=== PATIENT | male | born 1955 | race Caucasian/White ===

== ENCOUNTER 2017-01-29 14:29 | Emergency (ER) | payer MEDICARE, OTHER ==
[~2017-01-29] VITALS: Ht 180.3 cm; Wt 58.5 kg
[2017-01-29] MEDS ORDERED: ALBUTROL (14:50)
--- NOTE | 2017-01-29 15:12 | Diagnostic Imaging Report ---
INDICATION: Shortness of breath. History of COPD. COMPARISON: 11/28/2016. FINDINGS: There is obstructive pulmonary disease with flattening of the diaphragms. There is significant increase in air trapping bilaterally when compared with the previous exam. There are no acute infiltrates. No masses have developed. The heart is not enlarged. No evidence of pulmonary edema. No hilar adenopathy. IMPRESSION: 1. Findings consistent with severe COPD. Air trapping has increased significantly since the previous exam. 2. No acute infiltrates or masses have occurred. Dictated by: Dictated on workstation # [id number]
--- NOTE | 2017-01-29 15:24 | ED Respiratory ---
General Chief Complaint: Respiratory Problems Stated Complaint: SOA Nursing Triage Note: TO ED PER [facility] WITH SOA DUONEB AND ALBUTROL GIVEN BY EMS. PATIENT REPORTS IT IS GETTING WORSE LAST FEW DAYS. Source: patient, EMS History of Present Illness Time seen by provider: 14:34 Initial Comments PT ARRIVES VIA [facility] FROM HOME C/O SHORTNESS OF BREATH--HAS COPD AND IS A CHRONIC PROBLEM, WORSE FOR 2 DAYS EMS GAVE DUO NEB TREATMENT EN ROUTE, AND IS RECEIVING ALBUTEROL NEB TREATMENT ON ARRIVAL NO FEVER NO SIGNIFICANT COUGH HAS NOT BEEN USING HIS NEBULIZER PRESCRIBED. PT WEARS HOME O2 AT 5L/NC ( INCREASED DOSE HIMSELF ) PT CLAIMS HE QUIT SMOKING AND NO ONE IN HOME SMOKES ( BUT PT REEKS OF CIGARETTES ) PT HAS HISTORY OF SAME MULTIPLE TIMES PCP: [facility] Allergies and Home Medications Allergies Coded Allergies: No Known Drug Allergies (Unverified , 01/29/17) Home Medications (Reported) Budesonide 1 Mg/2 Ml Ampul.neb #1 1 MG IH BID Prescribed by: CHAVEZ ERICKSON on 01/29/17 1614 Doxycycline Monohydrate 100 Mg Capsule #20 100 MG PO BID Prescribed by: CHAVEZ ERICKSON on 01/29/17 1614 Methylprednisolone 4 Mg Tab.ds.pk #1 4 MG PO UD Prescribed by: CHAVEZ ERICKSON on 01/29/17 1614 Constitutional: no symptoms reported EENTM: no symptoms reported Respiratory: see HPI Cardiovascular: no symptoms reported Gastrointestinal: no symptoms reported Genitourinary: no symptoms reported Musculoskeletal: no symptoms reported Skin: no symptoms reported Psychiatric/Neurological: No Symptoms Reported Hematologic/Lymphatic: No Symptoms Reported Immunological/Allergic: no symptoms reported Past Stvbpcf-Lmadsc-Effsyg Hx Patient Social History Alcohol Use: Past History (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, DENIES RECENT USE) Recreational Drug Use: No Smoking Status: Former Smoker (2 11/13 PPD, QUIT 11/2016) Type Used: Cigarettes Recent Foreign Travel: No Contact w/Someone Who Travel: No Recent Infectious Disease Expo: No Recent Hopitalizations: No Surgeries HX Surgeries: Yes (RIGHT ARM--TRAUMATIC ABOVE ELBOW AMPUTATION 2006) Surgeries: Amputation, Orthopedic, Tonsillectomy Respiratory Hx Respiratory Disorders: Yes Respiratory Disorders: Pneumonia, COPD, Emphysema Cardiovascular Hx Cardiac Disorders: Yes Cardiac Disorders: Hypertension Neurological Hx Neurological Disorders: Yes Neurological Disorders: Neuropathy Genitourinary Hx Genitourinary Disorders: No Gastrointestinal Hx Gastrointestinal Disorders: No Musculoskeletal Hx Musculoskeletal Disorders: Yes (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 ABLE TO TALK IN FULL SENTENCES. ) thin HEENT: PERRL/EOMI (GLASSES) Neck: normal inspection Respiratory: no respiratory distress no accessory muscle use wheezing (FAINT [employer] INSPIRATORY WHEEZING ON LEFT, END EXPIRATORY WHEEZING ON RIGHT. 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 no motor/sensory deficits alert normal mood/affect oriented x 3 Skin: normal color warm/dry Focused Exam Lactic Acid Level Laboratory Tests Test 01/29/17 14:43 Alanine Aminotransferase (ALT/SGPT) 14U/L (0-55) Albumin 4.2G/DL (3.2-4.5) Alkaline Phosphatase 59U/L (40-136) Anion Gap 10MMOL/L (5-14) Aspartate Amino Transf (AST/SGOT) 15U/L (5-34) B-Type Natriuretic Peptide < 10.0PG/ML (<100.0) BUN/Creatinine Ratio 24 Blood Urea Nitrogen 21MG/DL (7-18) H Calcium Level 9.7MG/DL (8.5-10.1) Carbon Dioxide Level 32MMOL/L (21-32) Chloride Level 102MMOL/L (98-107) Creatinine 0.87MG/DL (0.60-1.30) Estimat Glomerular Filtration Rate > 60 Glucose Level 92MG/DL (70-105) Potassium Level 4.8MMOL/L (3.6-5.0) Sodium Level 144MMOL/L (135-145) Total Bilirubin 0.8MG/DL (0.1-1.0) Total Protein 6.9G/DL (6.4-8.2) Troponin I < 0.30NG/ML (<0.30) Progress/Results/Core Measures Results/Orders Lab Results Laboratory Tests Test 01/29/17 14:43 Range/Units Alanine Aminotransferase (ALT/SGPT) 14 0-55 U/L Albumin 4.2 3.2-4.5 G/DL Alkaline Phosphatase 59 40-136 U/L Anion Gap 10 5-14 MMOL/L Aspartate Amino Transf (AST/SGOT) 15 5-34 U/L B-Type Natriuretic Peptide < 10.0 <100.0 PG/ML BUN/Creatinine Ratio 24 Band Neutrophils 0 % Basophils # (Auto) 0.1 0.0-0.1 10^3/uL Basophils % (Manual) 1 % Basophils (%) (Auto) 2 0-10 % Blood Morphology Comment NORMAL Blood Urea Nitrogen 21 H 7-18 MG/DL Calcium Level 9.7 8.5-10.1 MG/DL Carbon Dioxide Level 32 21-32 MMOL/L Chloride Level 102 98-107 MMOL/L Creatinine 0.87 0.60-1.30 MG/DL Eosinophils # (Auto) 0.8 H 0.0-0.3 10^3/uL Eosinophils % (Manual) 13 % Eosinophils (%) (Auto) 12 H 0-10 % Estimat Glomerular Filtration Rate > 60 Glucose Level 92 70-105 MG/DL Hematocrit 45 40-54 % Hemoglobin 15.3 13.3-17.7 G/DL Lymphocytes # (Auto) 1.8 1.0-4.0 X 10^3 Lymphocytes % (Manual) 45 % Lymphocytes (%) (Auto) 29 12-44 % Mean Corpuscular Hemoglobin 29 25-34 PG Mean Corpuscular Hemoglobin Concent 34 32-36 G/DL Mean Corpuscular Volume 85 80-99 FL Mean Platelet Volume 11.0 H 7.4-10.4 FL Monocytes # (Auto) 0.5 0.0-1.0 X 10^3 Monocytes % (Manual) 2 % Monocytes (%) (Auto) 9 0-12 % Neutrophils # (Auto) 3.1 1.8-7.8 X 10^3 Neutrophils % (Manual) 39 % Neutrophils (%) (Auto) 49 42-75 % Platelet Count 218 130-400 10^3/uL Potassium Level 4.8 3.6-5.0 MMOL/L Red Blood Count 5.33 4.35-5.85 10^6/uL Red Cell Distribution Width 12.6 10.0-14.5 % Sodium Level 144 135-145 MMOL/L Total Bilirubin 0.8 0.1-1.0 MG/DL Total Protein 6.9 6.4-8.2 G/DL Troponin I < 0.30 <0.30 NG/ML White Blood Count 6.3 4.3-11.0 10^3/uL My Orders Orders-CHAVEZ ERICKSON DO Saline Lock/Iv-Start (01/29/17 14:39) Monitor-Rhythm Ecg Trace Only (01/29/17 14:39) BNP (01/29/17 14:39) Cbc With Automated Diff (01/29/17 14:39) Comprehensive Metabolic Panel (01/29/17 14:39) Troponin I (01/29/17 14:39) Chest Pa/Lat (2 View) (01/29/17 14:39) Ekg Tracing (01/29/17 14:39) Manual Differential (01/29/17 14:43) Ceftriaxone Injection (Rocephin Injectio (01/29/17 16:15) Medications Given in ED Current Medications Medications Dose Ordered Sig/Jeremiah Route Start Time Stop Time Status Last Admin Dose Admin Ceftriaxone Sodium/Sodium Chloride 50 ml @ 100 mls/hr ONCE ONCE IV 01/29/17 16:15 01/29/17 16:44 DC 01/29/17 16:20 100 MLS/HR Vital Signs/I&O Vital Sign - Last 12Hours 01/29/17 01/29/17 14:32 16:48 Temp 97.8 Pulse 74 86 Resp 18 18 B/P 131/90 Pulse Ox 98 96 O2 Delivery Nasal Cannula O2 Flow Rate 2 Blood Pressure Mean: 104 Progress Note : Progress Note LUNGS CLEAR AFTER NEBULIZER TREATMENT--PT STATES HE FEELS MUCH BETTER O2 SATS REMAINED 98% ON 2L/NC THROUGHOUT ER STAY PT FEELS COMFORTABLE GOING HOME. ECG Initial ECG Impression Time: 14:43 Initial ECG Rate: 71 Initial ECG Rhythm: Normal Sinus Initial ECG Impression: Normal Initial ECG Comparisson: No Previous ECG Available Diagnostic Imaging Comments CXR--NO ACUTE PROCESS, SEVERE COPD--PER RADIOLOGIST REPORT @ 1524 Reviewed: Reviewed by Me Departure Impression Impression: Primary Impression: COPD exacerbation Disposition: 01 HOME, SELF-CARE Condition: Improved Departure-Patient Inst. Referrals: NO,LOCAL PHYSICIAN (PCP/Family) Primary Care Physician Patient Instructions: Exacerbation of COPD (DC) Add. Discharge Instructions: USE YOUR ALBUTEROL/ ATROVENT NEBULIZER TREATMENTS EVERY 4-6 HOURS USE YOUR HOME OXYGEN AT 2 LITERS--DO NOT INCREASE IT ABOVE 5 LITERS FOLLOW UP WITH YOUR DR THIS WEEK FOR FURTHER CARE All discharge instructions reviewed with patient and/or family. Voiced understanding. Scripts Budesonide (Pulmicort)1 Mg/2 Ml Ampul.neb1 Mg IH BID #1 UNIT Prov:CHAVEZ ERICKSON DO 01/29/17 Methylprednisolone (Medrol)4 Mg Tab.ds.pk4 Mg PO UD #1 PKG Prov:CHAVEZ ERICKSON DO 01/29/17 Doxycycline Monohydrate 100 Mg [id number] Mg PO BID #20 CAP Prov:CHAVEZ ERICKSON DO 01/29/17 CHAVEZ ERICKSON DO Jan 29, 2017 15:24
[2017-01-29 15:25] LABS: BASOPHILS # (AUTO) 0.1 10^3/uL (0.0-0.1); BASOPHILS % (AUTO) 2 % (0-10); EOSINOPHILS # (AUTO) 0.8 10^3/uL (0.0-0.3); EOSINOPHILS % (AUTO) 12 % (0-10); LYMPHOCYTES # (AUTO) 1.8 X 10^3 (1.0-4.0); LYMPHOCYTES % (AUTO) 29 % (12-44); MEAN CORPUSCULAR HEMOGLOBIN 29 PG (25-34); MEAN CORPUSCULAR HGB CONC 34 G/DL (32-36); MEAN CORPUSCULAR VOLUME 85 FL (80-99); MONOCYTES # (AUTO) 0.5 X 10^3 (0.0-1.0); MONOCYTES % (AUTO) 9 % (0-12); NEUTROPHILS # (AUTO) 3.1 X 10^3 (1.8-7.8); NEUTROPHILS % (AUTO) 49 % (42-75); PLATELET COUNT 218 10^3/uL (130-400); RED BLOOD COUNT 5.33 10^6/uL (4.35-5.85); RED CELL DISTRIBUTION WIDTH 12.6 % (10.0-14.5); WHITE BLOOD COUNT 6.3 10^3/uL (4.3-11.0)
[2017-01-29 15:44] LABS: ALANINE AMINOTRANSFERASE 14 U/L (0-55); ALBUMIN 4.2 G/DL (3.2-4.5); ANION GAP 10 MMOL/L (5-14); ASPARTATE AMINO TRANSFERASE 15 U/L (5-34); BILIRUBIN,TOTAL 0.8 MG/DL (0.1-1.0); BLOOD UREA NITROGEN 21 MG/DL (7-18); BUN/CREATININE RATIO 24; CALCIUM 9.7 MG/DL (8.5-10.1); CARBON DIOXIDE 32 MMOL/L (21-32); CHLORIDE 102 MMOL/L (98-107); CREATININE SERUM 0.87 MG/DL (0.60-1.30); GFR ESTIMATED > 60; GLUCOSE 92 MG/DL (70-105); POTASSIUM 4.8 MMOL/L (3.6-5.0); SODIUM 144 MMOL/L (135-145); TOTAL PROTEIN 6.9 G/DL (6.4-8.2)
[2017-01-29 15:53] LABS: TROPONIN I < 0.30 NG/ML (<0.30)
[2017-01-29 15:59] LABS: BAND NEUTROPHILS 0 %; BASOPHILS % (MANUAL) 1 %; EOSINOPHILS % (MANUAL) 13 %; LYMPHOCYTES % (MANUAL) 45 %; NEUTROPHILS % (MANUAL) 39 %
[2017-01-29] MEDS ORDERED: METH4TAB PO (16:14)
[2017-01-29] MEDS ORDERED: BUDE1AMP IH (16:14)
[2017-01-29] MEDS ORDERED: DOXY100C42 PO (16:14)
[2017-01-29] MEDS ORDERED: cefTRIAXone INJECTION 1,000 MG in NS (IVPB) 50 ML IV ONE (16:15)
[2017-01-29 16:48] VITALS: BP 106/74
== END 2017-01-29 16:48 | disposition home or self-care (01) ==
LOC: ER 14:30 → EDBD 14:30 → ER 16:48
DX: J44.1 Chronic obstructive pulmonary disease with (acute) exacerbation (principal); Z89.221 Acquired absence of right upper limb above elbow; Z87.891 Personal history of nicotine dependence
CPT/HCPCS: 36415; 71020; 80053; 83880; 84484; 85007; 85027; 93005; 93041; 96374